=== PATIENT | male | born 1980 | race Caucasian/White ===

== ENCOUNTER 2019-02-03 01:22 | Emergency (ER) | payer BC ==
[~2019-02-03] VITALS: Ht 180.3 cm; Wt 81.6 kg
[2019-02-03 01:35] VITALS: BP 152/88
--- NOTE | 2019-02-03 01:35 | NUR ---
ER Nurse Note: Pt walked in c/o difficulty catching his breath. Pt stated he was at the gym and was involved with heavy cardio 02/01. Pt stated he had difficulty breathing. Pt went to gym again 02/02 and felt same problem. Pt lung sounds clear, 100%O2. No hx of resp illness
--- NOTE | 2019-02-03 01:49 | Emergency Room Report ---
History of Present Illness General Chief Complaint: General Complaint Source: Patient Present Illness HPI This is a 38-year-old male with no past medical history. He presents with chief complaint of acute onset of dyspnea and palpitation. He was watching TV when he felt like he could not breathe. He said his heart was beating fast. He did do some vaping earlier. He said he has not done any vaping for over 5 years. Denies any drug use. No nausea no vomiting. No syncope. He did have lightheadedness with this episode. Never had this problem before. No history of anxiety. He is better now. Allergies: Coded Allergies: No Known Allergies (Unverified , 02/03/19) Patient History Past Medical History: see triage record, old chart reviewed Past Surgical History: none Pertinent Family History: none Social History: Denies: smoking Immunizations: other Reviewed Nursing Documentation: PMH: Agreed; PSxH: Agreed Nursing Documentation-PM Past Medical History: No Stated History Review of Systems Eye: Denies: eye pain, blurred vision ENT: Denies: ear pain, nose congestion, throat swelling Respiratory: Reports: shortness of breath; Denies: cough Cardiovascular: Reports: palpitations; Denies: chest pain Gastrointestinal: Denies: abdominal pain, diarrhea, nausea, vomiting Musculoskeletal: Denies: back pain, joint pain Skin: Denies: rash Neurological: Denies: headache, numbness Endocrine: Denies: increased thirst, increased urine Hematologic/Lymphatic: Denies: easy bruising All Other Systems: negative except mentioned in HPI Physical Exam Vital Signs Date Time Temp Pulse Resp B/P (MAP) Pulse Ox O2 Delivery O2 Flow Rate FiO2 02/03/19 01:31 97.0 82 16 152/88 (109) 100 Room Air Vitals with high blood pressure Sp02 EP Interpretation: reviewed, normal General Appearance: well appearing, no apparent distress, alert Head: normocephalic, atraumatic Eyes: bilateral eye PERRL, bilateral eye EOMI ENT: hearing grossly normal, normal pharynx Neck: full range of motion, supple, no meningismus Respiratory: chest non-tender, lungs clear, normal breath sounds Cardiovascular #1: regular rate, rhythm, no murmur Gastrointestinal: normal bowel sounds, non tender, no mass, no organomegaly, no bruit, non-distended Musculoskeletal: back normal, gait/station normal, normal range of motion Psychiatric: mood/affect normal Medical Decision Making Diagnostic Impression: Primary Impression: Dyspnea Qualified Codes: R06.00 - Dyspnea, unspecified Additional Impression: Palpitations ER Course This patient presents with dyspnea and palpitation. Labs unremarkable. No evidence of arrhythmia here on the EKG and monitor. This may be secondary to the nicotine from vaping. If this continue, patient will need to see a petal shaper hand for Holter monitor. Will discharge home. EKG Diagnostic Results Rate: normal Rhythm: NSR ST Segments: no acute changes Rhythm Strip Diag. Results EP Interpretation: yes Rate: 66 Rhythm: NSR, no PVC's, no ectopy Last Vital Signs Date Time Temp Pulse Resp B/P (MAP) Pulse Ox O2 Delivery O2 Flow Rate FiO2 02/03/19 01:35 82 16 Room Air 02/03/19 01:35 97.0 152/88 100 Status: improved Disposition: HOME, SELF-CARE Condition: Stable Additional Instructions: Follow-up with your doctor in 7 days. Abstain from vaping and caffeine. If symptoms do not improve, you may need to see a petal shaper hand for Holter monitor. Return if worse. Jaciel Anaya MD Feb 03, 2019 01:49
--- NOTE | 2019-02-03 01:56 | NUR ---
ER Nurse Note: Pt calm, cooperative, stable. Labs and EKG done. Blood work sent to lab; awaiting results. Will continue to [facility] .
[2019-02-03 02:10] LABS: BASOPHILS % (AUTO) 1.2 % (0.0-2.0); EOSINOPHILS % (AUTO) 2.9 % (0.0-3.0); HEMATOCRIT 44.3 % (42.0-52.0); HEMOGLOBIN 15.3 G/DL (14.2-18.0); LYMPHOCYTES % (AUTO) 32.4 % (20.0-45.0); MEAN CORPUSCULAR VOLUME 88 FL (80-99); MONOCYTES % (AUTO) 10.3 % (1.0-10.0); NEUTROPHILS % (AUTO) 53.2 % (45.0-75.0); PLATELET COUNT 199 K/UL (150-450); RED BLOOD COUNT 5.01 M/UL (4.70-6.10); RED CELL DISTRIBUTION WIDTH 10.8 % (11.6-14.8)
[2019-02-03 02:14] LABS: ANION GAP 11 mmol/L (5-15); BLOOD UREA NITROGEN 34 mg/dL (7-18); CARBON DIOXIDE 28 MMOL/L (21-32); CHLORIDE 103 MMOL/L (98-107); CREATININE 1.3 MG/DL (0.55-1.30); POTASSIUM 3.5 MMOL/L (3.5-5.1); SODIUM 141 MMOL/L (136-145)
[2019-02-03 02:40] VITALS: BP 152/88
--- NOTE | 2019-02-03 03:00 | NUR ---
ER DISCHARGE NOTE: Patient is cleared to be discharged per ERMD, pt is aox4, on room air, with stable vital signs. pt was given dc and prescription instructions, pt was able to verbalize understanding, pt id band and iv site removed without complications. pt is able to ambulate with steady gait. pt took all belongings.
--- NOTE | 2019-02-06 16:59 | Cardiology Report ---
APPROVED REPORT EKG Measurement Heart [id number] Sinus rhythm with premature atrial complexes Low voltage QRS Borderline ECG
== END 2019-02-03 03:00 | disposition home or self-care (01) ==
LOC: EMR 01:50
DX: R06.00 Dyspnea, unspecified (principal); R00.2 Palpitations; F17.290 Nicotine dependence, other tobacco product, uncomplicated
CPT/HCPCS: 36415; 80048; 85025; 85379; 93005; 99284